=== PATIENT | male | born 1990 | race Caucasian/White ===

== ENCOUNTER 2022-11-06 13:44 | Outpatient (CLI) | payer OTHER ==
--- NOTE | 2022-11-06 15:55 | MRI Report ---
PROCEDURE: ANKLE WO - LT INDICATIONS: LEFT ANKLE PAIN TECHNIQUE: Noncontrast Magnetic Resonance Imaging (MRI) of the ankle/hindfoot was performed utilizing the follow ing sequences: sagittal T1 spin echo, sagittal T2 fast spin echo with fat saturation, axial PD fast s pin echo, axial T2 fast spin echo with fat saturation, coronal T1 spin echo, and coronal T2 fast spin echo with fat saturation. COMPARISON: None. FINDINGS: Image quality: Excellent. Bones and joints: No acute trabecular bone injury or fracture. No hindfoot coalition. The ankle mortise is maintained. No osteochondral defect is seen at the talar dome. Mild degenerative spurring of the dorsal talonavi cular joint. Medial structures: Mildly heterogeneous signal is seen involving the deep fibers of the deltoid ligament and there is mi ld thickening of the tibial spring ligament, compatible with a remote prior grade 1-2 sprain. The vis ualized components of the spring ligament complex are grossly intact. There is mild distal posterior tibialis tenosynovitis. The flexor digitorum longus and flexor hallucis longus tendons are intact. Th e posterior tibial neurovascular bundle appears normal within the tarsal tunnel, without extrinsic ma ss effect. Lateral structures: There is thickening of the anterior tibiofibular ligament. The posterior tibiofibular ligament is int act. Thickening of the anterior talofibular ligament and calcaneofibular ligament are noted. The post erior talofibular ligament is intact. The peroneus longus and peroneus brevis tendons demonstrate mi ld tendinosis. The sinus tarsi demonstrates normal fatty signal. Anterior structures: The tibialis anterior, extensor hallucis longus, and extensor digitorum longus tendons appear intact. Posterior and plantar structures: The Achilles tendon is intact. The medial and lateral bands of the plantar fascia are within normal l imits. No disproportionate atrophy of the abductor digiti minimi muscle. IMPRESSION: 1.Remote prior grade 1-2 sprains of the deltoid ligament involving the deep fibers and the tibiosprin g ligament. 2.Mild posterior tibialis tenosynovitis. 3.Chronic low-grade sprains of the anterior tibiofibular, anterior talofibular, and calcaneofibular l igaments. 4.Mild tendinosis of the peroneus brevis and longus tendons. Reviewed by: Glen Villalobos MD on 11/06/2022 3:53 PM PDT Approved by: Glen Villalobos MD on 11/06/2022 3:53 PM PDT Station ID: [id number]
== END 2022-11-06 13:45 | disposition home or self-care (01) ==
LOC: DI 13:44
PROVIDERS: ATTEND Nurse Practitioner Family
DX: S93.432A Sprain of tibiofibular ligament of left ankle, initial encounter (principal); S93.492A Sprain of other ligament of left ankle, initial encounter; S93.412A Sprain of calcaneofibular ligament of left ankle, initial encounter; M67.972 Unspecified disorder of synovium and tendon, left ankle and foot

== ENCOUNTER 2023-08-29 13:37 | Outpatient (CLI) | payer OTHER ==
[~2023-08-29 13:37] MED LIST: GADOTERATE MEGLUMINE 10 MMOL/20 ML VIAL ONE
[2023-08-29] MEDS ORDERED: GADOTERATE MEGLUMINE 10 MMOL/20 ML VIAL IVP ONE (18:58)
--- NOTE | 2023-08-29 19:18 | MRI Report ---
PROCEDURE: Lumbar Spine W/WO INDICATIONS: LOW BACK PAIN CONTRAST: 20ml Clariscan TECHNIQUE: Noncontrast sagittal T1 spin echo and T2 fast spin echo, sagittal STIR, axial T1 and T2 fast spin ech o through the lumbar spine. In cases with scoliosis, additional coronal T2 fast spin echo may be per formed. After the administration of contrast, sagittal and axial T1 spin echo with fat saturation th rough the lumbar spine. COMPARISON: 03/14/2022 FINDINGS: Image quality: Excellent. Alignment and curvature: There is normal bony alignment. Marrow: Degenerative endplate changes at L4-5 are similar the prior exam. Evidence of prior L4-5 left laminotomy noted. No abnormal enhancement or surgical location Spinal cord: Conus medullaris terminates at the L1 level. Visualized spinal cord demonstrates hugo l signal, without suspicious enhancement. Paraspinous soft tissues: No paravertebral masses or abnormal enhancement. T12-L1: Normal in appearance. L1-L2: Normal in appearance. L2-L3: Normal in appearance. L3-L4: Normal in appearance. L4-L5: Disc space narrowing and posterior disc bulge present. Mild to moderate central stenosis not ed, similar prior exam. Moderate bilateral foraminal stenosis greater on the right. L5-S1: Disc space narrowing and posterior disc bulge present with hypertrophic facet joints at. Mil d to moderate central stenosis with the prior. Moderate bilateral foraminal stenosis. IMPRESSION: Multilevel degenerative disc disease and arthropathy with degenerative endplate changes, similar to t he prior exam. Mild to moderate central stenosis L4-5 and L5-S1. Reviewed by: Donovan Aiken MD on 08/29/2023 6:17 PM AKST Approved by: Donovan Aiken MD on 08/29/2023 6:17 PM AKST Station ID: [id number]
== END 2023-08-29 13:38 | disposition home or self-care (01) ==
LOC: DI 13:37
PROVIDERS: ATTEND Nurse Practitioner Family
DX: M47.816 Spondylosis without myelopathy or radiculopathy, lumbar region (principal); M47.817 Spondylosis without myelopathy or radiculopathy, lumbosacral region; M51.36 Other intervertebral disc degeneration, lumbar region; M48.061 Spinal stenosis, lumbar region without neurogenic claudication; M51.37 Other intervertebral disc degeneration, lumbosacral region; M48.07 Spinal stenosis, lumbosacral region
CPT/HCPCS: 72158; A9575